=== PATIENT | male | born 1965 | race Caucasian/White ===

== ENCOUNTER 2023-02-10 08:20 | Outpatient (OUT) | payer MEDICAID, SELFPAY ==
[2023-02-10 09:28] LABS: Estimated GFR (African America >60 (>=60); Estimated GFR (Non-African Ame >60 (>=60)
[2023-02-11 05:07] LABS: Lithium (Eskalith(R)), Serum 0.9 mmol/L (0.5-1.2)
== END 2023-02-10 08:21 | disposition home or self-care (01) ==
LOC: LAB 08:25
DX: Z79.899 Other long term (current) drug therapy (principal)
CPT/HCPCS: 36415; 80178; 82565; 84520

== ENCOUNTER 2023-02-21 10:18 | Outpatient (OUT) | payer MEDICAID, SELFPAY ==
[2023-02-22 05:07] LABS: Lithium (Eskalith(R)), Serum 1.4 mmol/L (0.5-1.2)
== END 2023-02-21 10:19 | disposition home or self-care (01) ==
LOC: LAB 10:20
DX: Z79.899 Other long term (current) drug therapy (principal)
CPT/HCPCS: 36415; 80178

== ENCOUNTER 2023-02-28 07:33 | Outpatient (OUT) | payer MEDICAID, SELFPAY | END 2023-02-28 07:34 | disposition home or self-care (01) | DX: Z79.899 Other long term (current) drug therapy (principal) | CPT/HCPCS: 36415; 80178 ==

== ENCOUNTER 2023-05-11 07:27 | Outpatient (OUT) | payer OTHER, SELFPAY ==
[2023-05-12 06:09] LABS: Lithium (Eskalith(R)), Serum 0.9 mmol/L (0.5-1.2)
== END 2023-05-11 07:28 | disposition home or self-care (01) ==
LOC: LAB 07:28
DX: Z79.899 Other long term (current) drug therapy (principal)
CPT/HCPCS: 36415; 80178

== ENCOUNTER 2024-09-27 08:23 | Outpatient (OUT) | payer OTHER, SELFPAY ==
[2024-09-27 09:21] LABS: Alanine Aminotransferase 17 U/L (16-63); Albumin Globulin Ratio 1.3; Albumin Level 3.7 g/dL (3.4-5.0); Alkaline Phosphatase 71 U/L (46-116); Anion Gap 14.8; Aspartate Amino Transferase 13 U/L (15-37); BUN Creatinine Ratio 11.8; Bilirubin Total 0.3 mg/dL (0.2-1.0); Calcium 9.1 mg/dL (8.5-10.1); Carbon Dioxide 24.1 mmol/L (21.0-32.0); Chloride 107 mmol/L (98-107); Chol HDL Ratio 5.1; Cholesterol 197 mg/dL (<=200); Estimated GFR (African America >60 (>=60 mL/min/1.73m^2); Estimated GFR (Non-African Ame 59 (>=60 mL/min/1.73m^2); Globulin 2.9 g/dL; Glucose 110 mg/dL (74-106); HDL Cholesterol 39 mg/dL (40-60); Potassium 3.9 mmol/L (3.5-5.1); Sodium 142 mmol/L (136-145); Thyroid Stimulating Hormone 5.465 uIU/mL (0.358-3.740); Total Protein 6.6 g/dL (6.4-8.2); Triglycerides 170 mg/dL (<=150)
[2024-09-28 05:27] LABS: Lithium (Eskalith(R)), Serum 0.8 mmol/L (0.5-1.2)
== END 2024-09-27 08:24 | disposition home or self-care (01) ==
LOC: LAB 08:26
PROVIDERS: Visit Provider Registered Nurse Psychiatric/Mental Health
DX: Z79.899 Other long term (current) drug therapy (principal)
CPT/HCPCS: 36415; 80053; 80061; 80178; 84436; 84443